=== PATIENT | female | born 1965 | race Caucasian/White ===

== ENCOUNTER 2017-01-14 13:20 | Outpatient (CLI) | payer OTHER ==
--- NOTE | 2017-01-15 10:15 | XRAY Report ---
LEFT ANKLE, THREE VIEWS: 01/14/2017 CLINICAL HISTORY: Hyperextension injury. FINDINGS: Moderate degree of soft tissue swelling is noted about the left ankle especially laterally . No fracture is seen. Talar dome appears intact. IMPRESSION: MODERATE DEGREE OF LATERAL SOFT TISSUE SWELLING WITHOUT FRACTURE. 10:9:42 JOB #: [id number] EXT JOB #:[id number]
--- NOTE | 2017-01-15 10:24 | XRAY Report ---
THREE VIEW LEFT FOOT: 01/14/2017 CLINICAL HISTORY: Hyperextension left foot. COMPARISON: None. FINDINGS: A small bony ossicle is seen adjacent to the medial aspect of the tarsonavicular bone. Tin y accessory ossicle is seen adjacent to the lateral aspect of the base of the cuboid bone. Moderate d egree of soft tissue swelling is noted over the metatarsals. No acute fracture is seen. There is evid ence of healed old metatarsal fractures with new periosteal callus formation seen silhouetting the la teral aspect of the 4th metatarsal shaft and the medial aspect of the 2nd metatarsal shaft. IMPRESSION: 1. MILD SOFT TISSUE SWELLING IS SEEN OVER THE DORSAL ASPECT OF THE METATARSALS WITHOUT ACUTE FRACTURE . 2. SUGGESTION OF HEALED OLD METATARSAL STRESS FRACTURES IS NOTED INVOLVING THE 2ND AND 4TH METATARSAL S. JOB #: [id number] EXT JOB #:[id number]
== END 2017-01-14 13:21 | disposition home or self-care (01) ==
LOC: DI 13:20
PROVIDERS: ATTEND Family Medicine
DX: S99.822A Other specified injuries of left foot, initial encounter (principal)

== ENCOUNTER 2020-01-26 18:58 | Outpatient (CLI) | payer OTHER | END 2020-01-26 18:59 | disposition critical access hospital (66) | LOC: EMS 18:58 | PROVIDERS: ATTEND Surgery | DX: R04.0 Epistaxis (principal); R51 Headache; M54.2 Cervicalgia; R73.09 Other abnormal glucose; Z72.89 Other problems related to lifestyle | CPT/HCPCS: A0425; A0429 ==

== ENCOUNTER 2020-01-26 19:12 | Emergency (ER) | payer OTHER ==
--- NOTE | 2020-01-26 19:27 | ED Physician Documentation ---
History of Present Illness - Stated complaint Stated Complaint: HBD, FELL DOWN STAIRS, NECK PAIN, ARANGO, FACIAL INJ - History obtained from History obtained from: Patient, EMS (Patient is a 54-year-old female brought in by EMS this patient was called a trauma alert apparently she had a blood sugar of 55 at the scene she had obvious facial injuries the patient admits to drinking alcohol and is complaining of back and neck pain and facial pain. Remainder the history is unknown as the patient is intoxicated. 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 - Present Medications Home Medications: Ambulatory Orders Medication Instructions Recorded Confirmed Methadone 5 mg PO 01/29/13 03/13/13 oxyCODONE/ACET 5/325 [Percocet 5 1 each PO 01/29/13 03/13/13 mg/325 mg] Beclomethasone 40 Mcg [Qvar 40] 1 puffs INH 09/22/13 09/22/13 Estrogens, Conjugated [Premarin] 0.45 mg PO 09/22/13 09/22/13 Levalbuterol HCl [Xopenex] 1.25 mg IH 09/22/13 09/22/13 Methadone 10 mg PO BID 09/22/13 09/22/13 Oxycodone HCl 5 - 10 mg PO Q6HR PRN #20 tablet 09/22/13 Promethazine [Phenergan] 25 - 50 mg PO Q6H PRN #15 tab 09/22/13 Oxycodone HCl/Acetaminophen 1 - 2 each PO Q6H PRN #15 tablet 01/30/15 [Percocet 5-325 mg Tablet] - Allergies Allergies/Adverse Reactions: Allergies Allergy/AdvReac Type Severity Reaction Status Date / Time aspirin Allergy unknown Verified 01/26/20 19:32 Sulfa (Sulfonamide Allergy swelling Verified 01/26/20 19:32 Antibiotics) - Social History Does the pt smoke?: No Smoking Status: Never smoker Does the pt drink ETOH?: No Does the pt have substance abuse?: No - Immunizations Immunizations are current?: Yes - POLST Patient has POLST: No PD ED PE NORMAL - Vitals Vital signs reviewed: Yes - General General: No acute distress, Other (Smells of alcohol) - HEENT HEENT: PERRL, Other (There is ecchymosis to the nose there is no raccoon eyes no garcias sign no acute missing teeth there is blood in the nares but there is no septal hematoma no cervical midline tenderness palpation.) - Neck Neck: Supple, no meningeal sign - Cardiac Cardiac: RRR, No murmur, Strong equal pulses - Respiratory Respiratory: No respiratory distress, Clear bilaterally - Abdomen Abdomen: Normal bowel sounds, Soft, Non tender, Non distended, No organomegaly - Back Back: Other (No cervical, thoracic, lumbar or sacral step-offs or deformities there is diffuse tenderness over the thoracic spine.) - Derm Derm: Warm and dry - Extremities Extremities: No deformity - Neuro Neuro: Alert and oriented X 3, Other (Intoxicated) - Psych Psych: Normal mood, Normal affect Results - Vitals Vitals: Vital Signs - 24 hr 01/26/20 01/26/20 01/26/20 19:15 19:53 20:30 Temperature 36.6 C Heart Rate 72 81 72 Respiratory 16 17 Rate Blood Pressure 135/69 H 126/69 118/48 L O2 Saturation 100 96 95 01/26/20 01/26/20 01/26/20 21:16 21:30 22:00 Temperature Heart Rate 64 71 71 Respiratory 17 15 16 Rate Blood Pressure 132/72 H 111/66 133/59 H O2 Saturation 98 96 95 01/26/20 01/26/20 01/26/20 22:30 22:35 23:00 Temperature 36.9 C Heart Rate 62 79 Respiratory 16 15 Rate Blood Pressure 100/85 H 114/60 O2 Saturation 97 97 01/26/20 01/27/20 01/27/20 23:30 00:23 00:47 Temperature Heart Rate 66 65 62 Respiratory 17 17 Rate Blood Pressure 120/62 116/64 132/83 H O2 Saturation 96 96 97 01/27/20 01:00 Temperature Heart Rate 61 Respiratory 16 Rate Blood Pressure 128/67 O2 Saturation 97 Oxygen O2 Source Room air - Labs Labs: Laboratory Tests 01/26/20 01/26/20 01/26/20 19:15 19:15 19:15 WBC 12.8 H RBC 4.52 Hgb 14.9 Hct 44.5 MCV 98.5 MCH 33.0 H MCHC 33.5 RDW 13.0 Plt Count 273 MPV 8.7 Neut # (Auto) 10.2 H Lymph # (Auto) 1.8 [place] # (Auto) 0.4 Eos # (Auto) 0.2 Baso # (Auto) 0.1 Absolute Nucleated RBC 0.00 Nucleated RBC % 0.0 PT 11.5 INR 1.0 APTT 28.7 Sodium 143 Potassium 3.6 Chloride 103 Carbon Dioxide 22 Anion Gap 18.0 H BUN 24 H Creatinine 0.7 Estimated GFR (MDRD) 87 L Glucose 65 L Calcium 8.7 Total Bilirubin 0.6 AST 51 H ALT 36 Alkaline Phosphatase 56 Total Protein 8.0 Albumin 4.4 Globulin 3.6 Albumin/Globulin Ratio 1.2 Lipase 32 Urine Color Urine Clarity Urine pH Ur Specific [place] Urine Protein Urine Glucose (UA) Urine Ketones Urine Occult Blood Urine Nitrite Urine Bilirubin Urine Urobilinogen Ur Leukocyte Esterase Urine RBC Urine WBC Ur Squamous Epith Cells Urine Bacteria Urine Casts Ur Microscopic Review Urine Culture Comments Urine Opiates Screen Ur Oxycodone Screen Urine Methadone Screen Ur Propoxyphene Screen Ur Barbiturates Screen Ur Tricyclics Screen Ur Phencyclidine Scrn Ur Amphetamine Screen U Methamphetamines Scrn U Benzodiazepines Scrn Urine Cocaine Screen U Cannabinoids Screen Ethyl Alcohol 328.2 01/27/20 00:35 WBC RBC Hgb Hct MCV MCH MCHC RDW Plt Count MPV Neut # (Auto) Lymph # (Auto) [place] # (Auto) Eos # (Auto) Baso # (Auto) Absolute Nucleated RBC Nucleated RBC % PT INR APTT Sodium Potassium Chloride Carbon Dioxide Anion Gap BUN Creatinine Estimated GFR (MDRD) Glucose Calcium Total Bilirubin AST ALT Alkaline Phosphatase Total Protein Albumin Globulin Albumin/Globulin Ratio Lipase Urine Color YELLOW Urine Clarity CLEAR Urine pH 5.5 Ur Specific [place] >=1.030 H Urine Protein NEGATIVE Urine Glucose (UA) 500 H Urine Ketones 15 H Urine Occult Blood MODERATE H Urine Nitrite NEGATIVE Urine Bilirubin NEGATIVE Urine Urobilinogen 0.2 (NORMAL) Ur Leukocyte Esterase NEGATIVE Urine RBC 6-10 H Urine WBC 0-3 Ur Squamous Epith Cells RARE Squamous Urine Bacteria Many H Urine Casts 0-2 Hyaline Casts Ur Microscopic Review INDICATED Urine Culture Comments INDICATED Urine Opiates Screen NEGATIVE Ur Oxycodone Screen NEGATIVE Urine Methadone Screen NEGATIVE Ur Propoxyphene Screen NEGATIVE Ur Barbiturates Screen NEGATIVE Ur Tricyclics Screen NEGATIVE Ur Phencyclidine Scrn NEGATIVE Ur Amphetamine Screen NEGATIVE U Methamphetamines Scrn NEGATIVE U Benzodiazepines Scrn NEGATIVE Urine Cocaine Screen NEGATIVE U Cannabinoids Screen POSITIVE H Ethyl Alcohol PD MEDICAL DECISION MAKING - ED course Complexity details: reviewed old records, reviewed results, re-evaluated patient, considered differential (Concern is for close head and head injury as well as facial fractures and spinal fractures. Images reviewed it does show a T1 compression fracture patient will be transferred to a higher level of care.), d/w patient, d/w family, d/w database consultant - Consults Consults: Discussed case with (dr. tereza valentine neurosurgeon wants patient to be transferred to [facility] for MRI of c spine, place patient in [place] collar. patient transferred with assistance of dr. kapil mendoza via [place] and accepted by dr. vero lynn at [facility]. patient to be driven by to [facility] by personal vehicle. patient to cleared to ambulate by neurosurgeon dr. tereza valentine and cleared to be transferred by personal vehicle to [facility]. patient reexamined prior to discharge, NV intact. [place] collar in place. strength 5/5 in b/l upper and lower extremities. SILT throughout. no gross neurological deficits.), Request database consultant accept pt in transfer - Critical Care Time(min): 30 Time Includes: Direct patient care, Review records, Reassess patient, Document care, Coordinate care, Medical consult, Family consult for tx dec Data interpretation: Labs, CXR Procedures included in critical care time: Peripheral IV Departure - Departure Disposition: 02 Transfer Acute Care Hosp Clinical Impression: Fracture of nasal bone Qualifiers: Encounter type: initial encounter Fracture type: closed Qualified Code(s): S02.2XXA - Fracture of nasal bones, initial encounter for closed fracture Fracture, thoracic vertebra, compression Qualifiers: Encounter type: initial encounter Thoracic vertebra fracture level: T1 Qualifi ed Code(s): S22.010A - Wedge compression fracture of first thoracic vertebra, initial encounter for closed fracture Condition: Stable Discharge Date/Time: 01/27/20 01:45
[2020-01-26] MEDS ORDERED: FOLIC ACID INJ 1 MG, THIAMINE INJ 100 MG, MAGNESIUM SULFATE 2 GM, MULTIVITAMIN 10 ML in... IV STA ×5 (19:30)
[2020-01-26] MEDS ORDERED: DEXTROSE 50% ABBOJECT 25 GM/50 ML SYRINGE IVP STA (19:31)
[2020-01-26 19:48] LABS: BASOPHILS # (AUTO) 0.1 10^3/uL (0.0-0.1); BASOPHILS % (AUTO) 0.8 %; EOSINOPHILS # (AUTO) 0.2 10^3/uL (0.0-0.7); EOSINOPHILS % (AUTO) 1.9 %; HGB - HEMOGLOBIN 14.9 g/dL (12.0-16.0); LYMPHOCYTES # (AUTO) 1.8 10^3/uL (1.5-3.5); LYMPHOCYTES % (AUTO) 13.7 %; MEAN CORPUSCULAR HGB CONC 33.5 g/dL (32.0-36.0); MEAN CORPUSCULAR VOLUME 98.5 fL (81.0-99.0); MEAN PLATELET VOLUME 8.7 fL (7.9-10.8); MONOCYTES # (AUTO) 0.4 10^3/uL (0.0-1.0); MONOCYTES % (AUTO) 3.1 %; NEUTROPHILS # (AUTO) 10.2 10^3/uL (1.5-6.6); PLT - PLATELET COUNT 273 10^3/uL (130-450); RED BLOOD COUNT 4.52 10^6/uL (4.20-5.40); WHITE BLOOD COUNT 12.8 x10^3/uL (4.8-10.8)
[2020-01-26 19:55] LABS: PT - PROTHROMBIN TIME 11.5 secs (9.9-12.6)
[2020-01-26 19:59] LABS: ALBUMIN 4.4 g/dL (3.2-5.5); ALBUMIN/GLOBULIN RATIO 1.2 (1.0-2.2); BILIRUBIN,TOTAL 0.6 mg/dL (0.2-1.0); CALCIUM 8.7 mg/dL (8.5-10.3); CREATININE 0.7 mg/dL (0.4-1.0)
[2020-01-26] MEDS ORDERED: THIAMINE 100 MG/1 ML 2 ML MDV ONE (20:01)
[2020-01-26] MEDS ORDERED: MAGNESIUM SULFATE 1 GM/2 ML VIAL ONE (20:01)
[2020-01-26] MEDS ORDERED: FOLIC ACID 5 MG/1 ML 10ML MDV ONE (20:01)
[2020-01-26 20:02] LABS: PARTIAL THROMBOPLASTIN TIME 28.7 secs (24.9-33.3)
--- NOTE | 2020-01-26 20:04 | CT Report ---
Reason: trauma Procedure Date: 01/26/2020 Accession Number: [id number] / [id number] Procedure: CT - HEAD WO CPT Code: Final Report FULL RESULT: PROCEDURE: HEAD WO INDICATIONS: trauma TECHNIQUE: Noncontrast 4.5 mm thick angled axial sections acquired from the foramen magnum to the vertex. For radiation dose reduction, the following was used: automated exposure control, adjustment of mA and/or kV according to patient size. COMPARISON: MRI brain 03/31/2015. FINDINGS: Image quality: Diagnostic. CSF spaces: Basal cisterns are patent. No extra-axial fluid collections. Ventricles are normal in size and shape. Brain: No intracranial hemorrhage, mass, or mass effect. Bright-white matter interface is preserved. Skull and face: Calvarium and visualized facial bones are intact, without suspicious lesions. Sinuses: Visualized sinuses demonstrate mild mucosal thickening within the right sphenoid sinus and left maxillary sinus. The mastoid air cells are clear. IMPRESSION: 1. No acute intracranial abnormality. Reviewed by: Sukhjinder Bello MD on 01/26/2020 8:02 PM PDT Approved by: Sukhjinder Bello MD on 01/26/2020 8:02 PM PDT Station ID: [id number]
--- NOTE | 2020-01-26 20:20 | CT Report ---
Reason: trauma Procedure Date: 01/26/2020 Accession Number: [id number] / [id number] Procedure: CT - CERVICAL SPINE WO CPT Code: Final Report FULL RESULT: PROCEDURE: CERVICAL SPINE WO INDICATIONS: trauma TECHNIQUE: Noncontrast 3 mm thick sections acquired from the skull base to the T4 level. Sagittal and coronal reformats were then constructed. For radiation dose reduction, the following was used: automated exposure control, adjustment of mA and/or kV according to patient size. COMPARISON: None. FINDINGS: Image quality: Excellent. Bones: There is a mild superior endplate compression fracture of the T1 vertebral body anteriorly with approximately 15% loss of height. No retropulsed fragments in the spinal canal. No subluxation. There is straightening of the cervical lordosis. Minimal anterolisthesis demonstrated at C4-C5 and C7-T1, likely degenerative in etiology. There is multilevel degenerative disc disease including mild to moderate degeneration at C5-C6 and C6-C7 with endplate sclerosis and osteophytosis. There is an associated Schmorl's node along the inferior endplate of C5. Mild to moderate facet arthropathy demonstrated throughout the cervical spine. Visualized superior ribs are intact. Soft tissues: Prevertebral soft tissues are normal in thickness. No paravertebral hematomas. No apical pneumothoraces. IMPRESSION: 1. Mild superior endplate compression fracture of the T1 vertebral body anteriorly with approximately 15% loss of height. No retropulsed fragments in the spinal canal. 2. No definite fracture or subluxation in the cervical spine. Findings discussed with Dr. Leigh on 01/26/2020 at 8:15 PM. Reviewed by: Sukhjinder Bello MD on 01/26/2020 8:19 PM PDT Approved by: Sukhjinder Bello MD on 01/26/2020 8:19 PM PDT Station ID: [id number]
--- NOTE | 2020-01-26 20:23 | CT Report ---
Reason: facial trauma Procedure Date: 01/26/2020 Accession Number: [id number] / [id number] Procedure: CT - MAXILLOFACIAL WO CPT Code: Final Report FULL RESULT: PROCEDURE: MAXILLOFACIAL WO INDICATIONS: facial trauma TECHNIQUE: Noncontrast 1.5 mm thick axial images acquired from the mandible through the frontal sinuses, with coronal and sagittal reformatting. For radiation dose reduction, the following was used: automated exposure control, adjustment of mA and/or kV according to patient size. COMPARISON: None. FINDINGS: Image quality: Excellent. Bones and teeth: There are mildly displaced fractures of the bony nasal septum anteriorly. No definite displaced nasal bone fractures. Orbital barron are intact. Sinus barron show no fracture or deformity. Visualized portions of the mandible demonstrate no fractures or subluxation. Zygomatic arches are intact. Pterygoid plates are intact. Visualized portions of the skull base and auditory canals are intact. Sinuses: There is mild mucosal thickening within the ethmoid, left maxillary, and right sphenoid sinuses. No definite air-fluid levels. Mastoid air cells are aerated. Soft tissues: There is soft tissue swelling along the nasal bones and left periorbital region medially. The globes appear intact. No intraorbital collections. No enlarged lymph nodes. Vascular: Visualized vascular structures appear normal in the absence of contrast. Bony vascular foramina and canals are intact. IMPRESSION: 1. Mildly displaced fractures of the bony nasal septum anteriorly. 2. Left periorbital and perinasal soft tissue swelling without definite displaced nasal bone fractures. Findings discussed with Dr. Leigh on 01/26/2020 at 8:15 PM. Reviewed by: Sukhjinder Bello MD on 01/26/2020 8:21 PM PDT Approved by: Sukhjinder Bello MD on 01/26/2020 8:21 PM PDT Station ID: [id number]
--- NOTE | 2020-01-26 20:24 | XRAY Report ---
Reason: fall Procedure Date: 01/26/2020 Accession Number: [id number] / [id number] Procedure: XR - Chest 1 View X-Ray CPT Code: 03096 Final Report FULL RESULT: PROCEDURE: Chest 1 View X-Ray INDICATIONS: fall TECHNIQUE: One view of the chest was acquired. COMPARISON: Concurrent CT cervical spine. FINDINGS: Surgical changes and devices: None. Lungs and pleura: No pleural effusions or pneumothorax. Lungs are clear. Mediastinum: Mediastinal contours appear normal. Heart size is normal. Bones and chest wall: No displaced fractures are identified. Overlying soft tissues appear unremarkable. IMPRESSION: 1. No definite acute traumatic abnormality identified. 2. Mildly depressed T1 fracture seen on CT not well evaluated on x-ray. Reviewed by: Sukhjinder Bello MD on 01/26/2020 8:23 PM PDT Approved by: Sukhjinder Bello MD on 01/26/2020 8:23 PM PDT Station ID: [id number]
--- NOTE | 2020-01-26 20:27 | XRAY Report ---
Reason: fall Procedure Date: 01/26/2020 Accession Number: [id number] / [id number] Procedure: XR - Pelvis 1 View CPT Code: Final Report FULL RESULT: PROCEDURE: Pelvis 1 View INDICATIONS: fall TECHNIQUE: 2 AP views of the pelvis acquired. COMPARISON: None. FINDINGS: Bones: No displaced fractures or dislocations. No suspicious bony lesions. Soft tissues: Visualized bowel gas pattern is normal. No suspicious soft tissue calcifications. IMPRESSION: 1. No displaced fracture or dislocation. Reviewed by: Sukhjinder Bello MD on 01/26/2020 8:25 PM PDT Approved by: Sukhjinder Bello MD on 01/26/2020 8:25 PM PDT Station ID: [id number]
--- NOTE | 2020-01-26 21:27 | CT Report ---
Reason: T1 fracture Procedure Date: 01/26/2020 Accession Number: [id number] / [id number] Procedure: CT - THORACIC SPINE WO CPT Code: Final Report FULL RESULT: PROCEDURE: THORACIC SPINE WO INDICATIONS: T1 fracture TECHNIQUE: Noncontrast 3 mm thick sections acquired through the region of interest in the thoracic spine. Sagittal and coronal reformats were then constructed. For radiation dose reduction, the following was used: automated exposure control, adjustment of mA and/or kV according to patient size. COMPARISON: CT cervical spine 01/26/2020.. FINDINGS: Image quality: Excellent. Bones: There is a mild superior endplate compression deformity anteriorly within the T1 vertebral body. There is associated minimal loss of height of 15-20%. Findings are of indeterminate acuity. No retropulsed fragments in the spinal canal. Elsewhere, there is mild multilevel degenerative disc disease in the thoracic spine with mild disc space narrowing anteriorly. No suspicious sclerotic or lytic bony lesions. Central spinal canal is of normal overall caliber. Visualized ribs appear intact. Soft tissues: No paravertebral masses or hematomas. Visualized posteromedial lungs appear clear. IMPRESSION: 1. Mild superior endplate compression deformity of the T1 vertebral body of indeterminate acuity. No retropulsed fragments in the spinal canal. Reviewed by: Sukhjinder Bello MD on 01/26/2020 9:26 PM PDT Approved by: Sukhjinder Bello MD on 01/26/2020 9:26 PM PDT Station ID: [id number]
[2020-01-26] MEDS ORDERED: fentaNYL 100 MCG/2 ML VIAL IVP STA (21:34)
[2020-01-26] MEDS ORDERED: IBUPROFEN 800 MG TABLET PO STA (23:58)
[2020-01-27 00:43] LABS: MUDS CUTOFF CONCENTRATIONS CUTOFF CONC BELOW:
[2020-01-27 00:44] LABS: BILIRUBIN,URINE NEGATIVE (NEGATIVE); GLUCOSE, URINE (UA) 500 mg/dL (NEGATIVE); KETONES,URINE (UA) 15 mg/dL (NEGATIVE); LEUKOCYTE ESTERASE, URINE NEGATIVE (NEGATIVE); NITRITE,URINE NEGATIVE (NEGATIVE); OCCULT BLOOD,URINE MODERATE (NEGATIVE); PH,URINE 5.5 PH (5.0-7.5); PROTEIN,URINE NEGATIVE (NEGATIVE); UROBILINOGEN,URINE 0.2 (NORMAL) E.U./dL (NORMAL)
[2020-01-27 00:45] LABS: CLARITY,URINE CLEAR (CLEAR)
[2020-01-27 00:50] LABS: BACTERIA,URINE Many /HPF (None Seen); CASTS, URINE 0-2 Hyaline Casts /LPF; SQUAMOUS EPITHELIAL CELL,UR RARE Squamous (<= Few)
[2020-01-27 00:55] LABS: AMPHETAMINE SCREEN,URINE NEGATIVE (NEGATIVE); BENZODIAZEPINES SCREEN, URINE NEGATIVE (NEGATIVE); COCAINE SCREEN URINE NEGATIVE (NEGATIVE); METHADONE SCREEN, URINE NEGATIVE (NEGATIVE); METHAMPHETAMINES SCREEN, URINE NEGATIVE (NEGATIVE); OPIATE SCREEN, URINE NEGATIVE (NEGATIVE); OXYCODONE SCREEN, URINE NEGATIVE (NEGATIVE); PROPOXYPHENE SCREEN, URINE NEGATIVE (NEGATIVE); TRICYCLIC ANTIDEPRESSANT,URINE NEGATIVE (NEGATIVE)
[2020-01-27 01:04] VITALS: BP 128/67
[2020-01-27] MEDS ORDERED: ONDANSETRON 4 MG/2 ML VIAL IVP STA (01:05)
== END 2020-01-27 01:45 | disposition short-term general hospital (02) ==
LOC: EDUNIT# → ED 19:12
DX: S22.010A Wedge compression fracture of first thoracic vertebra, initial encounter for closed fracture (principal); S02.2XXA Fracture of nasal bones, initial encounter for closed fracture; W10.9XXA Fall (on) (from) unspecified stairs and steps, initial encounter; F10.129 Alcohol abuse with intoxication, unspecified; E16.2 Hypoglycemia, unspecified; M50.322 Other cervical disc degeneration at C5-C6 level
CPT/HCPCS: 36415; 70450; 70486; 71045; 72125; 72128; 72170; 80053; 80320; 81001; 83690; 85025; 85610; 85730; 87086; 96365; 96366; 96375; 99285; 99291; A9270; J3411; 80306; 81003

== ENCOUNTER 2020-06-25 14:35 | Outpatient (CLI) | payer OTHER ==
--- NOTE | 2020-06-26 14:37 | Mammography Report ---
BILATERAL DIGITAL SCREENING MAMMOGRAM 3D/2D: 06/25/2020 CLINICAL: Family history of breast cancer. Routine screening. Comparison is made to exam dated: 10/03/2014 mammogram - [facility]. There are sca ttered fibroglandular elements in both breasts. No significant masses, calcifications, or other findings are seen in either breast. There has been no significant interval change. IMPRESSION: NEGATIVE There is no mammographic evidence of malignancy. A 1 year screening mammogram is recommended. This exam was interpreted at Station ID: [id number]. NOTE: For mammograms, a report in lay terms will be sent to the patient. Approximately 15% of breast malignancies will not be visualized mammographically. In the management of a palpable breast mass, a negative mammogram must not discourage biopsy of a clinically suspicious lesion. Electronically Signed By: Tarik Ayala M.D. [facility] [place]:06/25/2020 18:00:49 ACR BI-RADS Category 1: Negative 3341F PARENCHYMAL PATTERN: (A) - The breast(s) demonstrate(s) scattered fibroglandular densities. BI-RADS CATEGORY: (1) - 1 RECOMMENDATION: (ANNUAL) - Recommend routine annual screening mammography. [id number] 1 year screening LATERALITY: (B)
== END 2020-06-25 14:36 | disposition home or self-care (01) ==
LOC: DI.N 14:35
DX: Z12.31 Encounter for screening mammogram for malignant neoplasm of breast (principal); Z80.3 Family history of malignant neoplasm of breast
CPT/HCPCS: 77063; 77067

== ENCOUNTER 2021-05-03 08:00 | Outpatient (CLI) | payer OTHER | END 2021-05-03 23:59 | disposition home or self-care (01) | LOC: LAB.N 08:00 | PROVIDERS: ATTEND Physician Assistant Medical | DX: R52 Pain, unspecified (principal); Z20.822 Contact with and (suspected) exposure to COVID-19 ==

== ENCOUNTER 2023-02-15 15:27 | Emergency (ER) | payer OTHER ==
--- NOTE | 2023-02-15 15:47 | ED Physician Documentation ---
History of Present Illness - Stated complaint Stated Complaint: L KNEE PX - Chief complaint Chief Complaint: General - History obtained from History obtained from: Patient - Additonal information Additional information: 58-year-old woman who had a DVT in the left calf about 15 years ago provoked by supplemental hormones has had a prominent varicose vein in her left popliteal fossa for quite some time but has been more hard over the last few days. She drives a lot. She denies chest pain or trouble breathing. 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 - Present Medications Home Medications: Ambulatory Orders Medication Instructions Recorded Confirmed Methadone [Methadone Hcl] 5 mg PO 01/29/13 03/13/13 oxyCODONE/ACET 5/325 [Percocet 5 1 each PO 01/29/13 03/13/13 mg/325 mg] Beclomethasone 40 Mcg [Qvar 40] 1 puffs INH 09/22/13 09/22/13 Estrogens, Conjugated [Premarin] 0.45 mg PO 09/22/13 09/22/13 Levalbuterol HCl [Xopenex] 1.25 mg IH 09/22/13 09/22/13 Methadone [Methadone Hcl] 10 mg PO BID 09/22/13 09/22/13 Promethazine [Phenergan] 25 - 50 mg PO Q6H PRN #15 tab 09/22/13 Oxycodone HCl/Acetaminophen 1 - 2 each PO Q6H PRN #15 tablet 01/30/15 [Percocet 5-325 mg Tablet] Acamprosate Calcium 333 mg PO DAILY 02/15/23 02/15/23 Doxepin [SINEquan] 25 mg PO DAILY 02/15/23 02/15/23 Gabapentin Enacarbil [Horizant] 300 mg PO DAILY 02/15/23 02/15/23 Naltrexone HCl 50 mg PO PRN PRN 02/15/23 02/15/23 Oxycodone HCl 5 - 10 mg PO Q6HR PRN 02/15/23 Propranolol HCl 20 mg PO DAILY 02/15/23 02/15/23 Venlafaxine HCl [Effexor Xr] 150 mg PO DAILY 02/15/23 02/15/23 buPROPion HCL [Bupropion HCl] 75 mg PO DAILY 02/15/23 02/15/23 hydrOXYzine HCL [Hydroxyzine HCl] 50 mg PO DAILY 02/15/23 02/15/23 - Allergies Allergies/Adverse Reactions: Allergies Allergy/AdvReac Type Severity Reaction Status Date / Time aspirin Allergy unknown Verified 01/26/20 19:32 Sulfa (Sulfonamide Allergy swelling Verified 01/26/20 19:32 Antibiotics) - Social History Does the pt smoke?: No Smoking Status: Never smoker Does the pt drink ETOH?: No Does the pt have substance abuse?: No - Immunizations Immunizations are current?: Yes - POLST Patient has POLST: No PD ED PE NORMAL - Vitals Vital signs reviewed: Yes - General General: Alert and oriented X 3, No acute distress - Extremities Extremities: Other (Fullness of the left little fossa with prominent varicosities but no calf swelling. Normal perfusion.) - Neuro Neuro: Alert and oriented X 3, Normal speech Results - Vitals Vitals: Vital Signs - 24 hr 02/15/23 02/15/23 15:30 16:52 Temperature 36.2 C L 36.8 C Heart Rate 57 L 50 L Respiratory 18 18 Rate Blood Pressure 125/64 124/72 O2 Saturation 97 98 Oxygen O2 Source Room air - Rads (name of study) Left leg duplex showing superficial thrombus in a varicose vein Relevant Findings:: Prelim report reviewed, Final report received PD Medical Decision Making - ED course ED course: 58-year-old woman with history of DVT presents with fullness in the left popliteal fossa and found to have superficial thrombus in a varicosity. We discussed anticoagulation but probably is not indicated at this time and was advised on baby aspirin. She notes she is allergic to aspirin with a side effect of coughing but thinks she will be able to tolerate the low-dose. She will follow-up with her physician in a week for repeat ultrasonography. Departure - Departure Disposition: 01 Home, Self Care Clinical Impression: Acute superficial venous thrombosis of left lower extremity Condition: Good Record reviewed to determine appropriate education?: Yes Instructions: ED Phlebitis Superficial Comments: As discussed you have a low risk superficial vein thrombosis. We discussed potential anticoagulants but reasonable to take a baby aspirin a day, 81 mg and follow-up with your physician with scheduling of a repeat ultrasound in about a week. Return if worse. Also, it is not unreasonable to follow-up with a vascular surgeon, 1 possibility would be: Lauri Richmond MD [facility]- Vascular Surgery [address] [place] [address], [address] [place] [address] Discharge Date/Time: 02/15/23 16:52
[2023-02-15 16:57] VITALS: BP 124/72
--- NOTE | 2023-02-15 17:08 | Ultrasound Report ---
PROCEDURE: Duplex Ext Veins Left INDICATIONS: leg pain TECHNIQUE: Real-time imaging, as well as color and pulse Doppler interrogation, were performed of the lower extr emity deep veins from the inguinal ligament to the popliteal fossa. COMPARISON: None. FINDINGS: The deep veins are normally compressible, and free of intraluminal thrombus. Color and pu lse Doppler demonstrate normal phasic intraluminal flow. There is normal augmentation response to di stal compression maneuver. A superficial varicose vein demonstrates a thrombus. IMPRESSION: No DVT in the left leg. A superficial thrombus is noted within a superficial varicose ve in. Reviewed by: Alcon Bailey on 02/15/2023 4:07 PM [facility] Approved by: Alcon Bailey on 02/15/2023 4:07 PM [facility] Station ID: [id number]
== END 2023-02-15 16:52 | disposition home or self-care (01) ==
LOC: ED 15:27
DX: I82.4Z2 Acute embolism and thrombosis of unspecified deep veins of left distal lower extremity (principal)
CPT/HCPCS: 99283; 99284

== ENCOUNTER 2023-06-17 13:15 | Outpatient (CLI) | payer OTHER ==
[2023-06-17 13:32] LABS: BASOPHILS % (AUTO) 0.8 %; EOSINOPHILS # (AUTO) 0.1 10^3/uL (0.0-0.7); EOSINOPHILS % (AUTO) 3.4 %; HCT - HEMATOCRIT 41.4 % (37.0-47.0); HGB - HEMOGLOBIN 13.9 g/dL (12.0-16.0); LYMPHOCYTES # (AUTO) 0.9 10^3/uL (1.5-3.5); LYMPHOCYTES % (AUTO) 24.1 %; MEAN CORPUSCULAR HEMOGLOBIN 30.6 pg (27.0-31.0); MEAN CORPUSCULAR HGB CONC 33.6 g/dL (32.0-36.0); MEAN CORPUSCULAR VOLUME 91.2 fL (81.0-99.0); MEAN PLATELET VOLUME 8.8 fL (7.9-10.8); MONOCYTES # (AUTO) 0.4 10^3/uL (0.0-1.0); MONOCYTES % (AUTO) 10.1 %; NEUTROPHILS # (AUTO) 2.3 10^3/uL (1.5-6.6); NEUTROPHILS % (AUTO) 61.6 %; PLT - PLATELET COUNT 274 10^3/uL (130-450); RED BLOOD COUNT 4.54 10^6/uL (4.20-5.40); RED CELL DISTRIBUTION WIDTH 12.4 % (12.0-15.0); WHITE BLOOD COUNT 3.8 x10^3/uL (4.8-10.8)
[2023-06-17 13:47] LABS: ALBUMIN 4.3 g/dL (3.2-5.5); ALBUMIN/GLOBULIN RATIO 1.6 (1.0-2.2); ALKALINE PHOSPHATASE 52 IU/L (42-121); ALT ALANINE AMINOTRANSFERASE 15 IU/L (10-60); AST ASPARTATE AMINOTRANSFERASE 19 IU/L (10-42); BILIRUBIN,TOTAL 0.5 mg/dL (0.2-1.0); BUN - BLOOD UREA NITROGEN 12 mg/dL (6-20); CALCIUM 9.3 mg/dL (8.5-10.3); CARBON DIOXIDE - CO2 32 mmol/L (21-32); CHLORIDE 99 mmol/L (101-111); CHOL/HDL RATIO 4.5 (<4.4); CHOLESTEROL 284 mg/dL; CREATININE 0.9 mg/dL (0.6-1.3); GFR - MDRD 64 (>89); GLUCOSE 98 mg/dL (74-104); HDL CHOLESTEROL 63 mg/dL; LDL CHOLESTEROL,CALCULATED 197 mg/dL; LDL/HDL RATIO 3.1 (<4.4); POTASSIUM 4.3 mmol/L (3.5-4.5); SODIUM 136 mmol/L (135-145); TRIGLYCERIDES 122 mg/dL (48-352); VLDL CHOLESTEROL 24 mg/dL
[2023-06-17 14:00] LABS: THYROID STIMULATING HORMONE 0.98 uIU/mL (0.34-5.60)
[2023-06-18 07:10] LABS: ESTRADIOL <5.0 pg/mL (.); PROGESTERONE 0.1 ng/mL (.)
== END 2023-06-17 13:16 | disposition home or self-care (01) ==
LOC: LAB 13:15
PROVIDERS: ATTEND Family Medicine
DX: I10 Essential (primary) hypertension (principal); N95.1 Menopausal and female climacteric states; R63.5 Abnormal weight gain
CPT/HCPCS: 36415; 80053; 80061; 82670; 83721; 84144; 84443; 85025

== ENCOUNTER 2024-04-12 14:18 | Outpatient (CLI) | payer OTHER ==
[2024-04-12 14:44] LABS: ALBUMIN 3.9 g/dL (3.2-5.5); ALBUMIN/GLOBULIN RATIO 1.3 (1.0-2.2); ALKALINE PHOSPHATASE 47 IU/L (42-121); ALT ALANINE AMINOTRANSFERASE 16 IU/L (10-60); AST ASPARTATE AMINOTRANSFERASE 20 IU/L (10-42); BILIRUBIN,TOTAL 0.4 mg/dL (0.2-1.0); BUN - BLOOD UREA NITROGEN 16 mg/dL (6-20); CALCIUM 8.8 mg/dL (8.5-10.3); CARBON DIOXIDE - CO2 31 mmol/L (21-32); CHLORIDE 102 mmol/L (101-111); CHOL/HDL RATIO 4.2 (<4.4); CHOLESTEROL 294 mg/dL; CREATININE 0.8 mg/dL (0.6-1.3); GFR - MDRD 73 (>89); GLUCOSE 97 mg/dL (74-104); HDL CHOLESTEROL 70 mg/dL; LDL CHOLESTEROL,CALCULATED 195 mg/dL; LDL/HDL RATIO 2.8 (<4.4); POTASSIUM 4.1 mmol/L (3.5-4.5); SODIUM 137 mmol/L (135-145); TOTAL PROTEIN 6.8 g/dL (6.4-8.9); TRIGLYCERIDES 146 mg/dL; VLDL CHOLESTEROL 29 mg/dL
== END 2024-04-12 14:19 | disposition home or self-care (01) ==
LOC: LAB 14:18
PROVIDERS: ATTEND Family Medicine
DX: E78.49 Other hyperlipidemia (principal)
CPT/HCPCS: 36415; 80053; 80061; 83721